=== PATIENT | female | born 1985 | race Two or more races ===

== ENCOUNTER 2016-09-14 10:30 | Emergency (ER) | payer MEDICAID ==
[~2016-09-14] VITALS: Ht 170.2 cm; Wt 72.6 kg
[2016-09-14 10:45] VITALS: BP 102/70
--- NOTE | 2016-09-14 10:58 | Emergency Room Report ---
History of Present Illness General Chief Complaint: Animal Bite Source: Patient Present Illness HPI Patient presents with complaints of cat bite and scratch to be right hand This occurred earlier last night As the area has appeared red and swollen patient was concerning came to the ER Patient reports that this happened to her previously She was initially put on clindamycin and doxycycline Patient had developed a rash that has stopped the medication at this time In the swelling had come down by itself Denies any fevers or chills denies any vomiting or diarrhea Allergies: Coded Allergies: CEPHALEXIN (Verified Allergy, Unknown, 09/14/16) CLINDAMYCIN (Verified Allergy, Unknown, 09/14/16) DOXYCYCLINE (Verified Allergy, Unknown, 09/14/16) PENICILLINS (Verified Allergy, Unknown, 09/14/16) PROCHLORPERAZINE (Verified Allergy, Unknown, 09/14/16) Patient History Past Medical History: see triage record Pertinent Family History: none Last Menstrual Period: unk Reviewed Nursing Documentation: PMH: Agreed, PSxH: Agreed Nursing Documentation-PMH Past Medical History: No History, Except For Review of Systems All Other Systems: negative except mentioned in HPI Physical Exam Vital Signs Date Time Temp Pulse Resp B/P Pulse Ox O2 Delivery O2 Flow Rate FiO2 09/14/16 10:36 97.9 84 16 102/70 97 Room Air Sp02 EP Interpretation: reviewed, normal General Appearance: well appearing, no apparent distress Head: normocephalic, atraumatic Eyes: bilateral eye EOMI, bilateral eye PERRL Musculoskeletal: other - Patient has several areas of puncture wound, scratch- like area on the index and middle finger of the right hand, there is increased erythema and swelling to the index finger, patient has sensory intact, the area of puncture have scabbed over Neurologic: alert, oriented x3, responsive Skin: other - As above Lymphatic: no adenopathy Medical Decision Making Diagnostic Impression: Primary Impression: Bite by animal Additional Impression: Cellulitis ER Course The area involved is concerning for possible infectious pathology Including tenosynovitis Patient is allergic to multiple medications Patient reports that she had taken azithromycin for a dental procedure Which she did well with She does not recall taking Bactrim in the past Patient is placed on Bactrim at this time And will have initial conservative outpatient trial She does require close followup with primary physician along with hand specialty consultation Last Vital Signs Date Time Temp Pulse Resp B/P Pulse Ox O2 Delivery O2 Flow Rate FiO2 09/14/16 10:45 97.9 16 102/70 97 Room Air 09/14/16 10:36 84 Status: improved Disposition: HOME, SELF-CARE Condition: Improved Additional Instructions: Patient is provided with the discharge instructions notified to follow up with primary doctor in the next 2-3 days otherwise return to the er with any worsening symptoms. Please note that this report is being documented using [employer] technology. This can lead to erroneous entry secondary to incorrect interpretation by the dictating instrument. CHASITY ELIZABETH D.O. September 14, 2016 10:58
[2016-09-14] MEDS ORDERED: Bactrim DS (160mg/800mg) tab ORAL ONE (11:00)
[2016-09-14] MEDS ORDERED: BACTRIM DS TAB1 EAC1 ORAL (11:06)
[2016-09-14] MEDS ORDERED: ACETAMINOPHEN-1 EAC1 ORAL (11:06)
[2016-09-14] MEDS ORDERED: ZITHROMAX500 MG ORAL (11:06)
[2016-09-15] MEDS ORDERED: MELATONIN5 M6 PO (03:49)
== END 2016-09-14 11:49 | disposition home or self-care (01) ==
LOC: EMR 10:45
DX: S61.451A Open bite of right hand, initial encounter (principal); L03.113 Cellulitis of right upper limb; W55.01XA Bitten by cat, initial encounter; Y93.9 Activity, unspecified; Y92.9 Unspecified place or not applicable; Z88.8 Allergy status to other drugs, medicaments and biological substances; Z88.0 Allergy status to penicillin
CPT/HCPCS: 99284

== ENCOUNTER 2016-09-15 00:49 | Inpatient (IN) | payer MEDICAID ==
[~2016-09-15] VITALS: Ht 170.2 cm; Wt 72.6 kg
[2016-09-15] VITALS (7 sets, daily range): BP systolic 92–107; BP diastolic 61–70
[~2016-09-15 00:49] MED LIST: ACETAMINOPHEN-1 EAC1 ORAL; BACTRIM DS TAB1 EAC1 ORAL; ZITHROMAX500 MG ORAL
[2016-09-15] MEDS ORDERED: Ketorolac 30mg Inj IV ONE (01:30)
[2016-09-15] MEDS ORDERED: Bacitracin Oint UD TOPIC ONE (01:30)
[2016-09-15] MEDS ORDERED: Vancomycin 1 GM in NS 275 ML IV ONE (01:30)
[2016-09-15] MEDS ORDERED: TdaP Vaccine 0.5ml Syr IM ONE (01:30)
--- NOTE | 2016-09-15 01:36 | Emergency Room Report ---
History of Present Illness General Chief Complaint: Fever Source: Patient Present Illness HPI The patient was seen earlier for Bite to right hand. She started on Bactrim and the swelling and redness and pain is getting worse. She's allergic to most other antibiotics that would be treating cat-bite bacteria. Is uncertain when her last tetanus shot was. She's tried putting lotion on the hands but is still is painful to move. The patient has implants and doesn't believe she is . Her last period was irregular. The patient denies any nausea vomiting diarrhea. Eyes red today. L handed. Allergies all with hives. Had doxy and clinda at same time. 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 Nursing Documentation: PMH: Agreed, PSxH: Agreed Review of Systems All Other Systems: negative except mentioned in HPI Physical Exam Vital Signs Date Time Temp Pulse Resp B/P Pulse Ox O2 Delivery O2 Flow Rate FiO2 09/15/16 00:53 100.2 107 16 98/68 96 Room Air Sp02 EP Interpretation: reviewed, normal General Appearance: well appearing, no apparent distress, GCS 15 Head: normocephalic Eyes: bilateral eye PERRL, bilateral eye Scleral Injection ENT: moist mucus membranes Neck: supple Respiratory: lungs clear, normal breath sounds Cardiovascular #1: regular rate, rhythm Cardiovascular #2: 2+ radial (R) - good cap fill involved fingers Gastrointestinal: normal inspection, normal bowel sounds, non tender, no mass, non-distended Musculoskeletal: back normal, gait/station normal, decreased range of motion - thumb and index fingers Neurologic: alert, oriented x3, motor strength/tone normal, sensory intact, other - distal neuro intact Skin: warm/dry, other - erythema and swelling - cat bites Medical Decision Making Diagnostic Impression: Primary Impression: Cellulitis Qualified Codes: L03.113 - Cellulitis of right upper limb ER Course Patient with worsening infection in hand from cat bite on antibiotics. Multiple medication allergies. Concern over possible non-coverage of antibiotics and worsening cellulitis. Needs IV antibiotics and analgesia. Labs will be evaluated and hand x-ray taken. Labs elevated WBC with L shift. Xray with STS. Vanco and cipro begun. Sling applied by tech. Position good and neurovasc intact as checked by me. Admit med Dr. Cuadra. Laboratory Tests Test 09/15/16 01:12 09/15/16 01:30 Urine Color Pale yellow Urine Appearance Clear Urine pH 7 (4.5-8.0) Urine Specific [place] 1.010 (1.005-1.035) Urine Protein Negative (NEGATIVE) Urine Glucose (UA) Negative (NEGATIVE) Urine Ketones 3+ (NEGATIVE) H Urine Occult Blood Negative (NEGATIVE) Urine Nitrite Negative (NEGATIVE) Urine Bilirubin Negative (NEGATIVE) Urine Urobilinogen Normal MG/DL (0.0-1.0) Urine Leukocyte Esterase Negative (NEGATIVE) Urine HCG, Qualitative Negative White Blood Count 11.7 K/UL (4.8-10.8) H Red Blood Count 4.55 M/UL (4.20-5.40) Hemoglobin 14.7 G/DL (12.0-16.0) Hematocrit 42.2 % (37.0-47.0) Mean Corpuscular Volume 93 FL (80-99) Mean Corpuscular Hemoglobin 32.2 PG (27.0-31.0) H Mean Corpuscular Hemoglobin Concent 34.8 G/DL (32.0-36.0) Red Cell Distribution Width 10.8 % (11.6-14.8) L Platelet Count 297 K/UL (150-450) Mean Platelet Volume 6.7 FL (6.5-10.1) Neutrophils (%) (Auto) % (45.0-75.0) Lymphocytes (%) (Auto) % (20.0-45.0) Monocytes (%) (Auto) % (1.0-10.0) Eosinophils (%) (Auto) % (0.0-3.0) Basophils (%) (Auto) % (0.0-2.0) Differential Total Cells Counted 100 Neutrophils % (Manual) 90 % (45-75) H Lymphocytes % (Manual) 3 % (20-45) L Monocytes % (Manual) 7 % (1-10) Eosinophils % (Manual) 0 % (0-3) Basophils % (Manual) 0 % (0-2) Band Neutrophils 0 % (0-8) Platelet Estimate Adequate Platelet Morphology Normal Red Blood Cell Morphology Normal Prothrombin Time 10.4 SEC (9.30-11.50) Prothrombin Time INR 1.0 (0.9-1.1) PTT 30 SEC (23-33) Sodium Level 138 mEQ/L (135-145) Potassium Level 4.0 mEQ/L (3.4-4.9) Chloride Level 99 mEQ/L (98-107) Carbon Dioxide Level 21 mEQ/L (20-30) Anion Gap 18 (5-15) H Blood Urea Nitrogen 6 mg/dL (7-23) L Creatinine 0.7 mg/dL (0.5-0.9) Estimate Glomerular Filtration Rate > 60 mL/min (>60) Glucose Level 114 mg/dL (74-106) H Lactic Acid Level 0.80 mmol/L (0.66-2.22) Calcium Level 8.9 mg/dL (8.6-10.2) Total Bilirubin 0.6 mg/dL (0.0-1.2) Aspartate Amino Transferase (AST) 20 U/L (5-40) Alanine Aminotransferase (ALT) 26 U/L (3-33) Alkaline Phosphatase 43 U/L (35-104) Total Creatine Kinase 67 U/L (26-140) Total Protein 7.3 g/dL (6.6-8.7) Albumin 4.3 g/dL (3.5-5.2) Globulin 3.0 g/dL Albumin/Globulin Ratio 1.4 (1.0-2.7) Other X-Ray Diagnostic Results Other X-Ray Diagnostic Results : X-Ray Ordered: R hand EP Interpretation: Yes Findings: no fractures, no dislocation, other - STS Last Vital Signs Date Time Temp Pulse Resp B/P Pulse Ox O2 Delivery O2 Flow Rate FiO2 09/15/16 08:09 97.3 79 18 97/61 100 Room Air Status: improved Disposition: ADMITTED INPATIENT Condition: Serious Jae Fitzpatrick M.D. September 15, 2016 01:36
[2016-09-15 01:56] LABS: APPEARANCE,URINE CLEAR; KETONES,URINE 3+ (NEGATIVE); LEUKOCYTE ESTERASE ,URINE NEGATIVE (NEGATIVE); NITRITE,URINE NEGATIVE (NEGATIVE); PH,URINE 7 (4.5-8.0); PROTEIN,URINE NEGATIVE (NEGATIVE); UROBILINOGEN,URINE NORMAL MG/DL (0.0-1.0)
[2016-09-15 01:56] LABS: MEAN CORPUSCULAR HEMOGLOBIN 32.2 PG (27.0-31.0); MEAN CORPUSCULAR HGB CONC 34.8 G/DL (32.0-36.0); MEAN CORPUSCULAR VOLUME 93 FL (80-99); MEAN PLATELET VOLUME 6.7 FL (6.5-10.1); PLATELET COUNT 297 K/UL (150-450); RED BLOOD COUNT 4.55 M/UL (4.20-5.40); RED CELL DISTRIBUTION WIDTH 10.8 % (11.6-14.8); WHITE BLOOD COUNT 11.7 K/UL (4.8-10.8)
[2016-09-15 02:12] LABS: PROTHROMBIN TIME 10.4 SEC (9.30-11.50)
[2016-09-15 02:18] LABS: ALANINE AMINOTRANSFERASE 26 U/L (3-33); ALBUMIN/GLOBULIN RATIO 1.4 (1.0-2.7); ANION GAP 18 (5-15); ASPARTATE AMINO TRANSFERASE 20 U/L (5-40); CALCIUM 8.9 mg/dL (8.6-10.2); CARBON DIOXIDE 21 mEQ/L (20-30); CHLORIDE 99 mEQ/L (98-107); CREATININE 0.7 mg/dL (0.5-0.9); GLOMERULAR FILTRATION RATE > 60 mL/min (>60); HEMOLYSIS 3; SODIUM 138 mEQ/L (135-145); TOTAL PROTEIN 7.3 g/dL (6.6-8.7)
[2016-09-15] MEDS ORDERED: Vancomycin 1gm inj IVPB ONE (03:02)
[2016-09-15] MEDS ORDERED: MELATONIN5 M6 PO (03:49)
--- NOTE | 2016-09-15 08:28 | History & Physical ---
History and Physical History & Physicial HPI 31 year old patient was seen earlier for Bite to right hand. She was started on Bactrim and the swelling and redness and pain became worse. She's allergic to most other antibiotics that would be treating cat-bite. She apparently was having nausea due to the meds and unable to take. bite was to right hand Allergies with hives. 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 Reviewed of systems: otherwise negative Physical exam WDWN NAD clear breath sounds bilaterally without rhonchi or wheeze [id number] without MRG NABS nontender no HSM no CCE nonfocal right hand with redness and swelling Laboratory Tests Test 09/15/16 01:12 09/15/16 01:30 Urine Color Pale yellow Urine Appearance Clear Urine pH 7 (4.5-8.0) Urine Specific [place] 1.010 (1.005-1.035) Urine Protein Negative (NEGATIVE) Urine Glucose (UA) Negative (NEGATIVE) Urine Ketones 3+ (NEGATIVE) H Urine Occult Blood Negative (NEGATIVE) Urine Nitrite Negative (NEGATIVE) Urine Bilirubin Negative (NEGATIVE) Urine Urobilinogen Normal MG/DL (0.0-1.0) Urine Leukocyte Esterase Negative (NEGATIVE) Urine HCG, Qualitative Negative White Blood Count 11.7 K/UL (4.8-10.8) H Red Blood Count 4.55 M/UL (4.20-5.40) Hemoglobin 14.7 G/DL (12.0-16.0) Hematocrit 42.2 % (37.0-47.0) Mean Corpuscular Volume 93 FL (80-99) Mean Corpuscular Hemoglobin 32.2 PG (27.0-31.0) H Mean Corpuscular Hemoglobin Concent 34.8 G/DL (32.0-36.0) Red Cell Distribution Width 10.8 % (11.6-14.8) L Platelet Count 297 K/UL (150-450) Mean Platelet Volume 6.7 FL (6.5-10.1) Neutrophils (%) (Auto) % (45.0-75.0) Lymphocytes (%) (Auto) % (20.0-45.0) Monocytes (%) (Auto) % (1.0-10.0) Eosinophils (%) (Auto) % (0.0-3.0) Basophils (%) (Auto) % (0.0-2.0) Neutrophils % (Manual) Pending Lymphocytes % (Manual) Pending Platelet Estimate Pending Platelet Morphology Pending Prothrombin Time 10.4 SEC (9.30-11.50) Prothromb Time International Ratio 1.0 (0.9-1.1) Activated Partial Thromboplast Time 30 SEC (23-33) Sodium Level 138 mEQ/L (135-145) Potassium Level 4.0 mEQ/L (3.4-4.9) Chloride Level 99 mEQ/L (98-107) Carbon Dioxide Level 21 mEQ/L (20-30) Anion Gap 18 (5-15) H Blood Urea Nitrogen 6 mg/dL (7-23) L Creatinine 0.7 mg/dL (0.5-0.9) Estimat Glomerular Filtration Rate > 60 mL/min (>60) Glucose Level 114 mg/dL (74-106) H Lactic Acid Level 0.80 mmol/L (0.66-2.22) Calcium Level 8.9 mg/dL (8.6-10.2) Total Bilirubin 0.6 mg/dL (0.0-1.2) Aspartate Amino Transf (AST/SGOT) 20 U/L (5-40) Alanine Aminotransferase (ALT/SGPT) 26 U/L (3-33) Alkaline Phosphatase 43 U/L (35-104) Total Creatine Kinase 67 U/L (26-140) Total Protein 7.3 g/dL (6.6-8.7) Albumin 4.3 g/dL (3.5-5.2) Globulin 3.0 g/dL Albumin/Globulin Ratio 1.4 (1.0-2.7) IMPRESSION cat bite multiple allergies leukocytosis PLAN IV vanco and levaquin ID evaluation local care medrol dose klever on dc antiemetics on dc dc in am if stable ASHLEY CUELLO September 15, 2016 08:28
[2016-09-15 08:32] LABS: BAND NEUTROPHILS % (MANUAL) 0 % (0-8); BASOPHILS % (MANUAL) 0 % (0-2); EOSINOPHILS % (MANUAL) 0 % (0-3); LYMPHOCYTES % (MANUAL) 3 % (20-45); NEUTROPHILS % (MANUAL) 90 % (45-75); PLATELET ESTIMATE ADEQUATE; PLATELET MORPHOLOGY NORMAL; TOTAL CELLS COUNTED 100
--- NOTE | 2016-09-15 11:51 | Diagnostic Imaging Report ---
Indications: Right hand pain Technique: 3 views of the right hand. Findings: Comparison: None. Soft tissues of the second digit are mildly, diffusely swollen. No fracture, dislocation, lytic destruction, periosteal reaction, surrounding soft tissue gas or foreign body, or other acute changes are demonstrated. No deformity, alignment abnormality, arthritic change, soft tissue calcification, or other chronic changes are demonstrated. IMPRESSION: Nonspecific soft tissue swelling of the right second finger. Otherwise negative right hand series.
[2016-09-15] MEDS: Vancomycin 1250mg/D5W 275ml IVPB SCH ×4 (12:21→22:04)
--- NOTE | 2016-09-15 16:00 | Diagnostic Imaging Report ---
Indications: Increasing right hand pain and swelling following cat bite, despite institution of therapy Technique: Continuous helical CT imaging of the right hand was performed with automatic exposure control following intravenous administration of nonionic contrast, on a Siemens sensation [address] scanner. Axial, coronal, and sagittal images were reconstructed at 3 mm slice thicknesses. CTDI volume(s): 12 mGy Total DLP: 258 mGy-cm Findings: Comparison: Right hand radiographs performed earlier today Subcutaneous soft tissues of the right hand are mildly, diffusely edematous. No discrete mass, loculated fluid collection, gas, or foreign body. Underlying bones and joints intact. IMPRESSION: Nonspecific diffuse soft tissue edema, compatible with cellulitis. No evidence of abscess. MRI may be of benefit in more detailed evaluation, however.
--- NOTE | 2016-09-15 18:59 | Consultation ---
DATE OF CONSULTATION: 09/15/2016 INFECTIOUS DISEASES CONSULTATION CONSULTING PHYSICIAN: Xavier Tang M.D. REFERRING PHYSICIAN: Rob Cuadra M.D. REASON FOR CONSULTATION: Cat bite cellulitis. HISTORY OF PRESENTING ILLNESS: This is a 31-year-old lady with history of Meniere disease, who came in after a cat bite to the right hand two days ago. She was started on Bactrim yesterday, but there was increasing redness and swelling with increasing pain. She received a tetanus toxoid vaccination and an Infectious Diseases consultation has been obtained for antibiotics. PAST MEDICAL HISTORY: 1. History of Meniere disease. 2. Breast ptosis with breast augmentation. MEDICATIONS: As an inpatient, the patient is on Ambien, intravenous vancomycin, Levaquin, Protonix, Tylenol, and Mylanta. ALLERGIES: 1. Penicillin. 2. Keflex. 3. Clindamycin. 4. Doxycycline. 5. Prochlorperazine. SOCIAL HISTORY: She does not smoke, drink, or use drugs. FAMILY HISTORY: Positive for cervical cancer in a sister and a maternal aunt. REVIEW OF SYSTEMS: Constitutional: She did have fever and chills. Respiratory: No cough. No shortness of breath or chest pain. Cardiac: No chest pain. No palpitation. No dizziness. No syncope. Gastrointestinal: She did have nausea and vomiting yesterday that has resolved. Now, no abdominal pain or diarrhea. PHYSICAL EXAMINATION: VITAL SIGNS: Temperature of 98.2 degrees, T-max of 100.3 degrees, pulse of 90, respiratory rate of 18, blood pressure 104/61, and O2 saturation of 92%. HEENT: Pupils equally reactive to light and accommodation. Mouth appears clean without thrush. NECK: Supple. No adenopathy. No JVD. CARDIOVASCULAR: Regular rate and rhythm. No murmurs. LUNGS: Clear to auscultation bilaterally. No crackles. No wheezes. ABDOMEN: Soft and nontender. No organomegaly. EXTREMITIES: No cyanosis. No clubbing. Right hand erythema and swelling noted over the fingers particularly over the thumb. Drainage noted. LABORATORY DATA: White count 11.7, hemoglobin 14.7, hematocrit 42.2, MCV 93, and platelet count of 297,000. Sodium 138, potassium 4, chloride 99, bicarb 21, BUN 6, creatinine 0.7, glucose 114, and calcium 8.9. Total bilirubin 0.6. AST 20, ALT 26, and alkaline phosphatase 43. CK of 67. Total protein 7.3. Albumin 4.3. UA is nitrite negative. X-ray of the hand is showing nonspecific soft tissue swelling of the right second finger. ASSESSMENT: This is a 31-year-old lady with a history of Meniere disease, who comes in after a cat bite with cellulitis of the right hand and finger, would like to rule out an underlying abscess as a possibility. PLAN: 1. Given her multiple drug allergies, continue intravenous vancomycin and Levaquin in the hospital. 2. We will order a CT of the right hand. 3. We will order wound cultures from the right hand. 4. We will follow up cultures and adjust antibiotics accordingly. I would like to thank, Dr. Cuadra, for this consultation. Xavier Tang M.D. DR: NAS JOB#: [id number] CC:
[2016-09-15] MEDS ORDERED: Zolpidem 5mg tab ORAL PRN (21:00)
[2016-09-16] MEDS: Norco 5mg/325mg tab ORAL PRN ×3 (00:53→10:50)
[2016-09-16 04:00] VITALS: BP 99/55
[2016-09-16 07:45] VITALS: BP 96/60
--- NOTE | 2016-09-16 09:05 | General Progress Note ---
Assessment/Plan Assessment/Plan IMPRESSION cat bite multiple allergies leukocytosis PLAN po levaquin and flagyl x 7 days ID evaluation; discussed and confirms dc meds local care medrol dose klever on dc if any rash antiemetics on dc dc today Subjective Allergies: Coded Allergies: CEPHALEXIN (Verified Allergy, Unknown, 09/14/16) CLINDAMYCIN (Verified Allergy, Unknown, 09/14/16) DOXYCYCLINE (Verified Allergy, Unknown, 09/14/16) PENICILLINS (Verified Allergy, Unknown, 09/14/16) PROCHLORPERAZINE (Verified Allergy, Unknown, 09/14/16) Subjective better Objective Last 24 Hour Vital Signs Date Time Temp Pulse Resp B/P Pulse Ox O2 Delivery O2 Flow Rate FiO2 09/16/16 07:45 97.3 68 14 96/60 96 Room Air 09/16/16 06:13 98.6 09/16/16 04:00 98.6 74 18 99/55 99 Room Air 09/15/16 23:46 100.8 85 20 103/64 98 Room Air 09/15/16 22:56 97.6 09/15/16 20:00 97.6 95 18 107/68 96 Room Air 09/15/16 17:00 97.9 09/15/16 15:56 100.0 76 18 106/70 99 Room Air 09/15/16 11:53 98.2 90 18 104/61 92 Room Air Intake and Output 09/15/16 09/16/16 19:00 07:00 Intake Total 1485.000 ml 525.000 ml Balance 1485.000 ml 525.000 ml Intake Oral 960 ml 250 ml IV Total 525.000 ml 275.000 ml # Voids 5 3 Labs Test 09/15/16 01:12 09/15/16 01:30 Urine Color Pale yellow Urine Appearance Clear Urine pH 7 (4.5-8.0) Urine Specific [place] 1.010 (1.005-1.035) Urine Protein Negative (NEGATIVE) Urine Glucose (UA) Negative (NEGATIVE) Urine Ketones 3+ (NEGATIVE) Urine Occult Blood Negative (NEGATIVE) Urine Nitrite Negative (NEGATIVE) Urine Bilirubin Negative (NEGATIVE) Urine Urobilinogen Normal MG/DL (0.0-1.0) Urine Leukocyte Esterase Negative (NEGATIVE) Urine HCG, Qualitative Negative White Blood Count 11.7 K/UL (4.8-10.8) Red Blood Count 4.55 M/UL (4.20-5.40) Hemoglobin 14.7 G/DL (12.0-16.0) Hematocrit 42.2 % (37.0-47.0) Mean Corpuscular Volume 93 FL (80-99) Mean Corpuscular Hemoglobin 32.2 PG (27.0-31.0) Mean Corpuscular Hemoglobin Concent 34.8 G/DL (32.0-36.0) Red Cell Distribution Width 10.8 % (11.6-14.8) Platelet Count 297 K/UL (150-450) Mean Platelet Volume 6.7 FL (6.5-10.1) Neutrophils (%) (Auto) % (45.0-75.0) Lymphocytes (%) (Auto) % (20.0-45.0) Monocytes (%) (Auto) % (1.0-10.0) Eosinophils (%) (Auto) % (0.0-3.0) Basophils (%) (Auto) % (0.0-2.0) Differential Total Cells Counted 100 Neutrophils % (Manual) 90 % (45-75) Lymphocytes % (Manual) 3 % (20-45) Monocytes % (Manual) 7 % (1-10) Eosinophils % (Manual) 0 % (0-3) Basophils % (Manual) 0 % (0-2) Band Neutrophils 0 % (0-8) Platelet Estimate Adequate Platelet Morphology Normal Red Blood Cell Morphology Normal Prothrombin Time 10.4 SEC (9.30-11.50) Prothromb Time International Ratio 1.0 (0.9-1.1) Activated Partial Thromboplast Time 30 SEC (23-33) Sodium Level 138 mEQ/L (135-145) Potassium Level 4.0 mEQ/L (3.4-4.9) Chloride Level 99 mEQ/L (98-107) Carbon Dioxide Level 21 mEQ/L (20-30) Anion Gap 18 (5-15) Blood Urea Nitrogen 6 mg/dL (7-23) Creatinine 0.7 mg/dL (0.5-0.9) Estimat Glomerular Filtration Rate > 60 mL/min (>60) Glucose Level 114 mg/dL (74-106) Lactic Acid Level 0.80 mmol/L (0.66-2.22) Calcium Level 8.9 mg/dL (8.6-10.2) Total Bilirubin 0.6 mg/dL (0.0-1.2) Aspartate Amino Transf (AST/SGOT) 20 U/L (5-40) Alanine Aminotransferase (ALT/SGPT) 26 U/L (3-33) Alkaline Phosphatase 43 U/L (35-104) Total Creatine Kinase 67 U/L (26-140) Total Protein 7.3 g/dL (6.6-8.7) Albumin 4.3 g/dL (3.5-5.2) Globulin 3.0 g/dL Albumin/Globulin Ratio 1.4 (1.0-2.7) Height (Feet): 5 Height (Inches): 7.00 Weight (Pounds): 160 Objective right hand improved reduced swelling ASHLEY CUELLO September 16, 2016 09:05
[2016-09-16] MEDS: Vancomycin 1250mg/D5W 275ml IVPB SCH ×4 (10:50→11:13)
[2016-09-16] MEDS ORDERED: NORCO 5-325 TA1 EACH ORAL (11:20)
[2016-09-16] MEDS ORDERED: ZOFRAN4 M3 ORAL (11:20)
[2016-09-16] MEDS ORDERED: METRONIDAZOLE500 MG ORAL (11:21)
[2016-09-16] MEDS ORDERED: LEVAQUIN500 MG ORAL (11:21)
[2016-09-16] MEDS ORDERED: MEDROL4 MG ORAL (11:24)
[2016-09-16 11:40] VITALS: BP 102/70
--- NOTE | 2016-09-16 11:49 | Infectious Diseases Prog Note ---
Assessment/Plan Assessment/Plan antibiotics : vancomycin iv, levoquin A 1. right hand cellulitis improving 2. s/p cat bite 3. Menieres disease P 1. d/c iv vancomycin 2. continue levoquin 7 more days 3. start and continue flagyl 7 more days 4. will follow up cultures 5. d/w Dr Cuadra Subjective Constitutional: Denies: chills, fever Respiratory: Denies: dry cough, shortness of breath Gastrointestinal/Abdominal: Denies: diarrhea, nausea, vomiting Musculoskeletal: Reports: pain - decreased in right hand Allergies: Coded Allergies: CEPHALEXIN (Verified Allergy, Unknown, 09/14/16) CLINDAMYCIN (Verified Allergy, Unknown, 09/14/16) DOXYCYCLINE (Verified Allergy, Unknown, 09/14/16) PENICILLINS (Verified Allergy, Unknown, 09/14/16) PROCHLORPERAZINE (Verified Allergy, Unknown, 09/14/16) Objective Vital Signs Last 24 Hour Vital Signs Date Time Temp Pulse Resp B/P Pulse Ox O2 Delivery O2 Flow Rate FiO2 09/16/16 11:40 96.4 71 16 102/70 99 Room Air 09/16/16 07:45 97.3 68 14 96/60 96 Room Air 09/16/16 06:13 98.6 09/16/16 04:00 98.6 74 18 99/55 99 Room Air 09/15/16 23:46 100.8 85 20 103/64 98 Room Air 09/15/16 22:56 97.6 09/15/16 20:00 97.6 95 18 107/68 96 Room Air 09/15/16 17:00 97.9 09/15/16 15:56 100.0 76 18 106/70 99 Room Air 09/15/16 11:53 98.2 90 18 104/61 92 Room Air Height (Feet): 5 Height (Inches): 7.00 Weight (Pounds): 160 Respiratory/Chest: lungs clear Cardiovascular: normal rate, regular rhythm, no gallop/murmur Abdomen: soft, non tender Extremities: no edema, other - right thumb and fingers decreased erythema and swelling Microbiology Date/Time Source Procedure Growth Status 09/15/16 15:15 Hand Right Gram Stain - Final Resulted 09/15/16 15:15 Hand Right Wound Culture - Preliminary NO GROWTH Resulted Laboratory Tests Test 09/16/16 10:25 Vancomycin Level Trough 2.1 ug/mL (5.0-12.0) LEONCIO RUIZ September 16, 2016 11:49
[2016-09-16 15:53] VITALS: BP 105/81
[2016-09-16] MEDS ORDERED: Tubing IV Secondary IV ONE (18:44)
--- NOTE | 2016-09-17 18:58 | Discharge Summary ---
Discharge Summary Hospital Course Date of Admission September 15, 2016 at 02:18 Date of Discharge September 16, 2016 at 18:45 Admitting Diagnosis CELLULITIS HPI Kathleen Avendaño is a 31 year old female who was admitted on September 15, 2016 at 02: 18 for Cellulitis Hospital Course job #[id number] Discharge Discharge Disposition Patient was discharged to Home (01) Discharge Diagnoses: Melody Bryson NP September 17, 2016 18:58
--- NOTE | 2016-09-17 23:49 | Discharge Summary 2 SIG ---
DATE OF ADMISSION: 09/15/2016 DATE OF DISCHARGE: 09/16/2016 GRAVEDIGGER: Xavier Tang M.D. BRIEF HOSPITAL COURSE: The patient is a 31-year-old patient, who was seen for a bite to the right hand and was started on Bactrim. However, the swelling and redness and pain become worse and has an allergy to multiple antibiotics. She was having nausea and unable to take medications. Hand CT showed nonspecific soft tissue swelling of the right second finger otherwise negative. She was seen by Dr. Tang. Given the patient's multiple allergies, she was given IV vancomycin and Levaquin. CT of the hand showed a nonspecific diffuse soft tissue edema compatible with cellulitis with no evidence of abscess. She was given local wound care and antibiotic was changed to p.o. Levaquin and Flagyl to continue for 7 more days. She was given Medrol Dosepak for possible allergic reaction on medications and antiemetics. She was eventually discharged home to follow up with PMD. FINAL DIAGNOSES: 1. Right hand cellulitis secondary to cat bite. 2. Multiple allergies. 3. Leukocytosis. Rob Cuadra M.D. I have been assigned to dictate discharge summary on this account and I was not involved in the patient's management. Melody Bryson N.P. DR: IMER JOB#: [id number] CC:
== END 2016-09-16 18:45 | disposition home or self-care (01) | DRG 383 ==
LOC: EMR 01:15 → INTOOBSV 02:18 → 4W 02:18 → OBSVTOIN 02:18 → EDBEDREQ 03:18 → 4W 04:00
DX: L03.113 Cellulitis of right upper limb (principal); H81.09 Meniere's disease, unspecified ear; Z88.0 Allergy status to penicillin; W55.01XA Bitten by cat, initial encounter; Y92.89 Other specified places as the place of occurrence of the external cause
CPT/HCPCS: 29240; 36415; 80053; 80202; 81003; 81025; 82550; 83605; 85007; 85025; 85610; 85730; 87070; 87205; 90471; 90715

== ENCOUNTER 2016-09-26 20:45 | Emergency (ER) | payer MEDICAID ==
[~2016-09-26] VITALS: Ht 170.2 cm; Wt 70.3 kg
[~2016-09-26 20:45] MED LIST changes: +LEVAQUIN500 MG ORAL; +MEDROL4 MG ORAL; +MELATONIN5 M6 PO; +METRONIDAZOLE500 MG ORAL; +NORCO 5-325 TA1 EACH ORAL; +ZOFRAN4 M3 ORAL
[2016-09-26] MEDS ORDERED: Azithromycin Inj IV ONE (21:30)
[2016-09-26] MEDS ORDERED: Azithromycin 500 MG in NS 275 ML IV ONE (21:45)
[2016-09-26 22:06] LABS: MEAN CORPUSCULAR HEMOGLOBIN 34.2 PG (27.0-31.0); MEAN CORPUSCULAR HGB CONC 35.5 G/DL (32.0-36.0); MEAN CORPUSCULAR VOLUME 96 FL (80-99); MEAN PLATELET VOLUME 5.7 FL (6.5-10.1); PLATELET COUNT 274 K/UL (150-450); RED BLOOD COUNT 4.37 M/UL (4.20-5.40); RED CELL DISTRIBUTION WIDTH 11.2 % (11.6-14.8); WHITE BLOOD COUNT 12.2 K/UL (4.8-10.8)
--- NOTE | 2016-09-26 22:15 | Emergency Room Report ---
History of Present Illness General Chief Complaint: Upper Extremity Injury Source: Patient Present Illness HPI Is a 31-year-old female who is right-hand dominant. She presents with chief complaint of fever. She had a cat bite he was admitted here on September 15. CT scan show inflammation but no abscess. She did have a small amount of purulent discharge from the wound there was culture grew out pasteurella. She was on antibiotics and was doing better. Her Dr. actually switch her to different antibiotics also. Today she had a fever 100.6. She has no other symptoms. The pain in her finger is the same. Swelling is better. Denies any other complaint. Nausea but no diarrhea. No vomiting. Allergies: Coded Allergies: CEPHALEXIN (Verified Allergy, Unknown, 09/14/16) CLINDAMYCIN (Verified Allergy, Unknown, 09/14/16) DOXYCYCLINE (Verified Allergy, Unknown, 09/14/16) PENICILLINS (Verified Allergy, Unknown, 09/14/16) PROCHLORPERAZINE (Verified Allergy, Unknown, 09/14/16) Patient History Past Medical History: see triage record, old chart reviewed Past Surgical History: other Pertinent Family History: none Social History: Denies: drug use Last Menstrual Period: AROUND AUGUST Now: No Immunizations: UTD Reviewed Nursing Documentation: PMH: Agreed, PSxH: Agreed Nursing Documentation-PMH Hx Cancer: No Hx Gastrointestinal Problems: No Hx Neurological Problems: No Review of Systems Eye: Denies: blurred vision, eye pain ENT: Denies: ear pain, nose congestion, throat swelling Respiratory: Denies: cough, shortness of breath Cardiovascular: Denies: chest pain, palpitations Gastrointestinal: Denies: abdominal pain, diarrhea, nausea, vomiting Musculoskeletal: Reports: joint pain, Denies: back pain Skin: Denies: rash Neurological: Denies: headache, numbness Endocrine: Denies: increased thirst, increased urine Hematologic/Lymphatic: Denies: easy bruising All Other Systems: negative except mentioned in HPI Physical Exam Vital Signs Date Time Temp Pulse Resp B/P Pulse Ox O2 Delivery O2 Flow Rate FiO2 09/26/16 20:50 99.9 135 18 99/68 97 Room Air vitals with a low-grade fever and tachycardia Procedures Additional Procedure Procedure Narrative Procedure: Aspiration Indication: Cellulitis rule out abscess Description: Area clean with chlorhexidine. Local anesthetic with 1% lidocaine with epinephrine. Small amount injected. Using a 16-gauge needle I tried aspirate the most edematous area on her right index finger. There is no purulent discharge. Patient tolerated procedure without a problem. Medical Decision Making Diagnostic Impression: Primary Impression: Cellulitis Qualified Codes: L03.011 - Cellulitis of right finger ER Course Patient presents with possible cellulitis of her right index finger there was bitten by her cat. She grew out pasteurella. I will put her on azithromycin. She felt better now. Heart rate normalized her blood pressure stable. I see no evidence of any abscess. Since she felt better, she wanted to go home. I will refer her to hand surgeon. Last Vital Signs Date Time Temp Pulse Resp B/P Pulse Ox O2 Delivery O2 Flow Rate FiO2 09/26/16 20:50 99.9 135 18 99/68 97 Room Air Status: improved Disposition: HOME, SELF-CARE Condition: Stable Scripts Azithromycin* (ZITHROMAX*) 250 Mg Tablet 250 MG ORAL DAILY, #4 TAB Prov: AMBROSE JENNINGS M.D. 09/26/16 Referrals: NON PHYSICIAN (PCP) Additional Instructions: Keep hand elevated. Followup with your Dr. in 2 to 3 days for recheck. Return if worse. AMBROSE JENNINGS M.D. September 26, 2016 22:15
[2016-09-26 22:19] LABS: ANION GAP 18 (5-15); CALCIUM 9.4 mg/dL (8.6-10.2); CARBON DIOXIDE 22 mEQ/L (20-30); CHLORIDE 95 mEQ/L (98-107); CREATININE 0.8 mg/dL (0.5-0.9); GLOMERULAR FILTRATION RATE > 60 mL/min (>60); HEMOLYSIS 6; POTASSIUM 3.5 mEQ/L (3.4-4.9); SODIUM 135 mEQ/L (135-145)
[2016-09-26 22:49] VITALS: BP 93/55
[2016-09-26] MEDS ORDERED: ZITHROMAX250 MG ORAL (23:27)
[2016-09-26 23:36] LABS: BAND NEUTROPHILS % (MANUAL) 1 % (0-8); LYMPHOCYTES % (MANUAL) 5 % (20-45); NEUTROPHILS % (MANUAL) 91 % (45-75); TOTAL CELLS COUNTED 100
[2016-09-26 23:37] LABS: BASOPHILS % (MANUAL) 0 % (0-2); EOSINOPHILS % (MANUAL) 0 % (0-3); PLATELET ESTIMATE ADEQUATE; PLATELET MORPHOLOGY NORMAL
[2016-09-26 23:39] VITALS: BP 92/58
== END 2016-09-26 23:51 | disposition home or self-care (01) ==
LOC: EMR 21:45
DX: L03.011 Cellulitis of right finger (principal); M25.50 Pain in unspecified joint; Z88.8 Allergy status to other drugs, medicaments and biological substances; R00.0 Tachycardia, unspecified
CPT/HCPCS: 10021; 36415; 80048; 85007; 85025; 96360; 96374; 99284; J0456; J2405; J7050; Z7502